=== PATIENT | male | born 1995 | race Hispanic/Latino ===

== ENCOUNTER 2018-01-18 04:20 | Emergency (ER) | payer OTHER, SELFPAY ==
--- NOTE | 2018-01-18 04:23 | ED.MALEGU ---
HPI - Male Genitourinary General Chief complaint: Urogenital-Male Stated complaint: feels like he has to pee all the time Time Seen by Provider: 01/18/18 04:22 Source: patient Mode of arrival: ambulatory Limitations: no limitations History of Present Illness HPI Narrative: Otherwise healthy 22-year-old male here for evaluation of couple days of urinary frequency and wanting to drink a lot. He states that prior to a couple days ago he has never had anything like this before. He states that when he goes the bathroom he does feel like he empties his bladder. Does have some burning when he goes the bathroom. No urinary incontinence. No vomiting. No fevers. No history of urinary tract infections. Does have a history of gonorrhea and chlamydia. Is currently sexually active. Related Data Previous Rx's Medication Instructions Recorded ondansetron [Zofran ODT] 4 mg SUBLINGUAL Q6HP PRN #10 odt 12/09/16 sulfamethoxazole-trimethoprim 1 tab PO BID #20 tab 05/10/17 Allergies Allergy/AdvReac Type Severity Reaction Status Date / Time No Known Allergies Allergy Uncoded 05/16/17 13:06 Review of Systems Constitutional Denies fever(s) Genitourinary Denies genital lesions, Denies genital pain, Reports dysuria, Denies penile discharge, Reports urinary frequency, Denies urinary hesitancy, Denies urinary incontinence and Denies urinary urgency Musculoskeletal Denies myalgias and Denies arthralgias Integumentary/Breasts Denies rash PFSH Medical History Healthy adult (Acute) Surgical History No pertinent past surgical history (Acute) Social History marital status: unmarried,single lives independently: Yes Smoking Status: Current every day smoker Exam Initial Vital Signs Initial Vital Signs: Vital Signs Temperature 97.7 F 01/18/18 04:27 Pulse Rate 96 H 01/18/18 04:27 Respiratory Rate 18 01/18/18 04:27 Blood Pressure 122/71 01/18/18 04:27 Pulse Oximetry 99 01/18/18 04:27 Const General: cooperative, healthy appearing, comfortable, well developed, well groomed and No acute distress Orientation: alert, awake and oriented x3 Resp Effort & Inspection: normal respiratory effort Cardio Rate: regular rate GI Inspection: non-distended Skin Rashes: no rashes Neuro General: alert, awake and oriented x3 Extrem General: normal to inspection Psych Appearance: grossly normal and well kempt Course Orders Ordered: ED Orders 01/18/18 04:45 Urinalysis and Microscopic Stat Urine Chlamydia Gonorrhea PCR Stat Urine Culture Stat Vital Signs - 8 hr 01/18/18 04:27 Temperature 97.7 F Pulse Rate 96 H Respiratory Rate 18 Blood Pressure 122/71 Pulse Oximetry 99 MDM - Male Genitourinary Lab Data Attestation: I reviewed the patient's lab results. Lab Results 01/18/18 01/18/18 Range/Units 04:45 04:45 Urine Color Yellow Urine Appearance Clear Urine pH 6.5 (4.5-8.0) Ur Specific [place] 1.020 (1.000-1.035) Urine Protein Negative (Negative) Urine Glucose (UA) Negative (Normal) g/dL Urine Ketones Negative (NEGATIVE) Urine Occult Blood Negative (Negative) Urine Nitrate Negative (Negative) Urine Bilirubin Negative (NEGATIVE) Urine Urobilinogen 0.2 (0.2) E.U./dL Ur Leukocyte Esterase Trace H (NEGATIVE) Urine RBC 0-1/hpf (0-5/HPF) Urine WBC 5-10/hpf H (0-5/HPF) Ur Squamous Epith Cells 0-1 /hpf Urine Bacteria Few (2-10) H (None) Ur Culture Indicated? Specimen cultured Micro UA Comment Not Reportable Ur Chlamydia DNA (PCR) Detected H N gonorrhoeae DNA (PCR) Not detected Point of Care Testing Glucose POC 60 MDM Narrative Medical decision making narrative: Patient's workup today detected Chlamydia. The gonorrhea was not detected however in the past patient states that he has had gonorrhea and chlamydia together. Will go ahead and treat him for both these. He was given Rocephin IM and azithromycin p.o. here in the ER. I did inform him that he should follow up with a primary provider to obtain a test of cure. I did inform him that he should abstain from any sexual activity for the next 7-14 days. I did inform him that he should contact any prior sexual partners that could potentially been exposed to follow up with her primary doctors for testing and treatment. Patient was given return precautions. He expressed understanding and agreement with plan. Discharge Plan Departure Patient Disposition: Home Clinical Impression: Chlamydia trachomatis infection of genitourinary site Instructions: Facts About Sexually Transmitted Infections, DI for Chlamydia Activity Restrictions/Additional Instructions: I do recommend that you may contact with a primary care provider to obtain a test of cure in 7-14 days. I also recommend that you abstain from any sexual activity during this time. I also recommend that you contact any previous sexual partners that could have potentially been exposed to this infection. Return to the emergency department for any new or worsening symptoms Prescriptions: No Action ondansetron [Zofran ODT] 4 MG tablet,disintegrating 4 mg Sublingual Q6HP PRNQty: 10 RF: 0 sulfamethoxazole-trimethoprim 800 MG/160 MG tablet 1 tab PO BID Qty: 20 RF: 0
[2018-01-18 04:27] VITALS: BP 122/71; PULSE 96; RESP 18; TEMP 36.5; O2SAT 99; BMI 20.7
[2018-01-18 04:54] LABS: Bilirubin Urine UA NEGATIVE (NEGATIVE); Color Urine UA YELLOW; Glucose Urine UA NEGATIVE (Normal); Nitrite Urine UA NEGATIVE (Negative); Urobilinogen Urine UA 0.2 E.U./dL (0.2)
[2018-01-18 05:01] LABS: Bacteria Urine Few (2-10); Culture Indicated Urine Specimen Cultured
[2018-01-18 05:06] LABS: Appearance Urine UA Clear
[2018-01-18 05:09] LABS: pH Urine UA 6.5 (4.5-8.0)
[2018-01-18 05:10] LABS: Ketones Urine UA NEGATIVE (NEGATIVE); Leukocyte Esterase Urine UA TRACE (NEGATIVE); Occult Blood Urine UA Negative (Negative); Protein Urine UA Negative (Negative)
[2018-01-18 05:14] LABS: RBC Urine 0-1/HPF (0-5/HPF); WBC Urine 5-10/HPF (0-5/HPF)
[2018-01-18 05:15] LABS: Squamous Epithelial Cell Urine 0-1 /HPF
[2018-01-18 06:37] LABS: Urine N gonorrhoeae NOT DETECTED
[2018-01-18] MEDS: AZITHROMYCIN 250 MG TABLET 1000 MG PO (07:25)
[2018-01-18] MEDS: cefTRIAXone 500 MG VIAL 250 MG IM (07:26)
[2018-01-18 09:12] LABS: Urine Chlamydia DETECTED
== END 2018-01-18 07:45 | disposition home or self-care (01) ==
PROVIDERS: Emergency Provider Emergency Medicine
DX: A56.2 Chlamydial infection of genitourinary tract, unspecified (principal)
CPT/HCPCS: 81001; 82962; 87086; 87491; 87591; 96372; 99283; J0696

== ENCOUNTER 2018-12-12 18:34 | Emergency (ER) | payer SELFPAY ==
[2018-12-12 18:45] VITALS: BP 136/69; PULSE 90; RESP 15; TEMP 37.6; O2SAT 100; BMI 22.6
--- NOTE | 2018-12-12 19:05 | ED.MALEGU ---
HPI - Male Genitourinary <Grace Norrsi PA-C - Last Filed: 12/12/18 20:53> General Chief complaint: Urogenital-Male Stated complaint: DISCOMFORT WITH URINATION Time Seen by Provider: 12/12/18 19:05 Source: patient Mode of arrival: Ambulatory Limitations: no limitations History of Present Illness HPI Narrative: This 23-year-old male comes to ED secondary to urinary symptoms. He states that just for the last few days, he has had some mild itching and intermittent discomfort/pain with urination. He states this is mild. He denies any hematuria, new back pain, fever or vomiting. He denies any discharge. He denies any rashes. He states he is in a long-term monogamous relationship and does not think any STD concerns however he states that when he did have Chlamydia previously symptoms started like this in the beginning. Related Data Previous Rx's Medication Instructions Recorded ondansetron [Zofran ODT] 4 mg SUBLINGUAL Q6HP PRN #10 odt 12/09/16 sulfamethoxazole-trimethoprim 1 tab PO BID #20 tab 05/10/17 Allergies Allergy/AdvReac Type Severity Reaction Status Date / Time No Known Drug Allergies Allergy Verified 12/12/18 18:45 Review of Systems <Grace Norris PA-C - Last Filed: 12/12/18 20:53> Review of Systems ROS Unobtainable: All systems reviewed & are unremarkable except as noted in HPI and below Patient History <Grace Norris PA-C - Last Filed: 12/12/18 20:53> Medical History (Updated 12/12/18 @ 20:05 by Grace Norris PA-C) Healthy adult (Acute) Scoliosis (Chronic) Surgical History No pertinent past surgical history (Acute) Social History (Updated 01/18/18 @ 04:50 by Jimmie Moscoso DO) marital status: unmarried,single lives independently: Yes Smoking Status: Current every day smoker alcohol intake frequency: a few times a month Substance Use Type: marijuana Exam <Grace Norris PA-C - Last Filed: 12/12/18 20:53> Narrative Exam Narrative: GENERAL APPEARANCE: Patient sitting comfortably, in no distress. LUNGS: Clear to auscultation bilaterally. HEART: Rate and rhythm regular without murmur, normal S1 and S2, no S3 or S4. ABDOMEN: Soft, NT, ND, +BS x 4 quadrants, no CVAT. : No exanthem, penile meatus without erythema or discharge Initial Vital Signs Initial Vital Signs: Vital Signs Temperature 99.7 F H 12/12/18 18:45 Pulse Rate 90 12/12/18 18:45 Respiratory Rate 15 12/12/18 18:45 Blood Pressure 136/69 12/12/18 18:45 Pulse Oximetry 100 12/12/18 18:45 <Wilton Bradshaw DO - Last Filed: 12/13/18 03:26> Initial Vital Signs Initial Vital Signs: Vital Signs Temperature 99.7 F H 12/12/18 18:45 Pulse Rate 90 12/12/18 18:45 Respiratory Rate 15 12/12/18 18:45 Blood Pressure 136/69 12/12/18 18:45 Pulse Oximetry 100 12/12/18 18:45 Course <Grace Norris PA-C - Last Filed: 12/12/18 20:53> Course Additional Information: Patient stated that sx are mild, requested to proceed with G/C treatment as today symptoms were somewhat like beginning of previous symptoms. He is in a monogamous relationship. He did not want to wait for test results, so treatment was done, gonorrhea/chlamydia testing pending and will be called with results as well as culture results. He agreed to return if any acutely worsening symptoms in the interim as he does not have a local PCP. Orders Ordered: ED Orders 12/12/18 18:45 Urine Chlamydia Gonorrhea PCR Stat Urine Culture Stat Urine Microscopic Stat Discontinued Medications Azithromycin (Zithromax) 1,000 mg PO NOW ONE Stop: 12/12/18 19:41 Last Admin: 12/12/18 19:56 Dose: 1,000 mg Documented by: CAMILLE Ceftriaxone Sodium (Rocephin) 250 mg IM NOW ONE Stop: 12/12/18 19:41 Last Admin: 12/12/18 19:56 Dose: 250 mg Documented by: CAMILLE Vital Signs Vital signs: Vital Signs - 8 hr 12/12/18 18:45 Temperature 99.7 F H Pulse Rate 90 Respiratory Rate 15 Blood Pressure 136/69 Pulse Oximetry 100 <Wilton Bradshaw DO - Last Filed: 12/13/18 03:26> Orders Ordered: ED Orders 12/12/18 18:45 Urine Chlamydia Gonorrhea PCR Stat Urine Culture Stat Urine Microscopic Stat Discontinued Medications Azithromycin (Zithromax) 1,000 mg PO NOW ONE Stop: 12/12/18 19:41 Last Admin: 12/12/18 19:56 Dose: 1,000 mg Documented by: CAMILLE Ceftriaxone Sodium (Rocephin) 250 mg IM NOW ONE Stop: 12/12/18 19:41 Last Admin: 12/12/18 19:56 Dose: 250 mg Documented by: CAMILLE Vital Signs Vital signs: Vital Signs - 8 hr 12/12/18 18:45 Temperature 99.7 F H Pulse Rate 90 Respiratory Rate 15 Blood Pressure 136/69 Pulse Oximetry 100 MDM - Male Genitourinary <Grace Norris PA-C - Last Filed: 12/12/18 20:53> Lab Data Labs: Lab Results 12/12/18 12/12/18 Range/Units 18:45 18:45 Urine RBC 0-1/hpf (0-5/HPF) Urine WBC 1-5/hpf (0-5/HPF) Ur Squamous Epith Cells 0-1 /hpf (0-5/HPF) Ur Transition Epith Cell 0-1/hpf (0-5/HPF) Urine Bacteria Few (2-10) H (None) Ur Culture Indicated? Specimen cultured Micro UA Comment Kadi esterase + Ur Chlamydia DNA (PCR) Not detected N gonorrhoeae DNA (PCR) Not detected Urine Dip Bedside Urine Glucose Negative Bedside Urine Bilirubin - Negative Bedside Urine Ketone - Negative Urine Specific [place] 1.015 Bedside Urine Occult Blood - Negative Bedside Urine pH 6.0 Bedside Urine Protein - Negative Bedside Urine Urobilinogen - Negative Bedside Urine Nitrite - Negative Bedside Urine Leukocytes + 70 Esterase <Wilton Bradshaw DO - Last Filed: 12/13/18 03:26> Lab Data Labs: Lab Results 12/12/18 12/12/18 Range/Units 18:45 18:45 Urine RBC 0-1/hpf (0-5/HPF) Urine WBC 1-5/hpf (0-5/HPF) Ur Squamous Epith Cells 0-1 /hpf (0-5/HPF) Ur Transition Epith Cell 0-1/hpf (0-5/HPF) Urine Bacteria Few (2-10) H (None) Ur Culture Indicated? Specimen cultured Micro UA Comment Kadi esterase + Ur Chlamydia DNA (PCR) Not detected N gonorrhoeae DNA (PCR) Not detected Urine Dip Bedside Urine Glucose Negative Bedside Urine Bilirubin - Negative Bedside Urine Ketone - Negative Urine Specific [place] 1.015 Bedside Urine Occult Blood - Negative Bedside Urine pH 6.0 Bedside Urine Protein - Negative Bedside Urine Urobilinogen - Negative Bedside Urine Nitrite - Negative Bedside Urine Leukocytes + 70 Esterase Discharge Plan Departure Patient Disposition: Home Clinical Impression: Urethritis Discharge Date/Time: 12/12/18 20:10 Activity Restrictions/Additional Instructions: We have given you the antibiotics to cover for gonorrhea and chlamydia again since your previous infection started this way, however we do not have the test results back. We did send your urine for a bacterial culture and will call you with results and to inform you if any further treatment is needed for any other urinary infection. You should refrain from sexual activity for a minimum of 7-14 days. As we talked about, you should return here if you have new or acutely worsening symptoms. Tomorrow, please call the health learning disabilities resource teacher at [phone] so that you can get help with setting up a local primary care provider. Prescriptions: No Action ondansetron [Zofran ODT] 4 MG tablet,disintegrating 4 mg Sublingual Q6HP PRNQty: 10 RF: 0 sulfamethoxazole-trimethoprim 800 MG/160 MG tablet 1 tab PO BID Qty: 20 RF: 0
--- NOTE | 2018-12-12 19:09 | PC.NURSE ---
pt reports, has burning with urination only, itching when not urinating, sxs for 5 days. denies rash, admit with one partner only, denies penile dc. denies fever,vomiting, injuries.
[2018-12-12 19:18] LABS: RBC Urine 0-1/HPF (0-5/HPF); Squamous Epithelial Cell Urine 0-1 /HPF (0-5/HPF); Transitional Epi Cells Urine 0-1/HPF (0-5/HPF); WBC Urine 1-5/HPF (0-5/HPF)
[2018-12-12 19:19] LABS: Bacteria Urine Few (2-10); Culture Indicated Urine Specimen Cultured; Urine Comments LEU ESTERASE +
[2018-12-12] MEDS: cefTRIAXone 500 MG VIAL 250 MG IM (19:56)
[2018-12-12] MEDS: AZITHROMYCIN 250 MG TABLET 1000 MG PO (19:56)
[2018-12-12 21:16] LABS: Urine N gonorrhoeae NOT DETECTED
[2018-12-12 21:18] LABS: Urine Chlamydia NOT DETECTED
== END 2018-12-12 20:10 | disposition home or self-care (01) ==
PROVIDERS: Emergency Provider Internal Medicine
DX: N34.2 Other urethritis (principal)
CPT/HCPCS: 81003; 81015; 87086; 87491; 87591; 96372; 99283; J0696